=== PATIENT | female | born 1970 | race Caucasian/White ===

== ENCOUNTER 2017-03-01 17:38 | Emergency (ER) | payer MEDICAID ==
[~2017-03-01] VITALS: Ht 167.6 cm; Wt 65.0 kg
[~2017-03-01 17:38] MED LIST: ALBU1AER INH; CETI10 PO; FLUT1SPR9; LISI-363 PO; LORTA5 PO; MINO50CA PO; MINO50TA PO; MONT10TA2 PO; SYMB160A INH; TAB-TAB PO; VITA100020 IM
[2017-03-01 17:47] VITALS: BP 119/73; PULSE 82; RESP 16; TEMP 98.4; O2SAT 100
[2017-03-01] MEDS ORDERED: ALBUAER3 INH (18:02)
[2017-03-01] MEDS ORDERED: MINO50CA PO (18:02)
[2017-03-01] MEDS ORDERED: CETI10 PO (18:02)
[2017-03-01] MEDS ORDERED: LISI-515 PO (18:02)
[2017-03-01] MEDS ORDERED: FLUT1SPR5 EACH NARE (18:02)
[2017-03-01] MEDS ORDERED: SYMB80AE INH (18:02)
[2017-03-01] MEDS ORDERED: MONT10TA2 PO (18:02)
--- NOTE | 2017-03-01 19:14 | PD ---
HPI Chief Complaint: Foreign Body Time Seen by Provider: 19:14 Travel History International Travel<30 days: No Contact w/Intl Traveler<30days: No Traveled to known affect area: No History of Present Illness HPI 46-year-old female presents to the emergency department for evaluation of foreign body sensation in the left eye for about 3 hours. Patient states that she was standing in line at the [employer] market and felt something fly into her left eye. States that she tried to flush it with water but the foreign body sensation has persisted. States that initially she did have pain and increased tearing. States that while she was given sitting here with her eye closed for a while her symptoms have improved. States that she does still have a foreign body sensation in the eye. Denies any vision loss, blurred vision, photophobia , discharge, vision loss, headache, dizziness. Denies wearing any contact lenses. No other complaints. PFSH Past Medical History Hx Anticoagulant Therapy: No Asthma: Yes Anxiety: Yes Cardiovascular Problems: Yes (HTN) Cerebrovascular Accident: No Diabetes: No Diminished Hearing: No Hypertension: Yes Respiratory: Yes (ASTHMA) Myocardial Infarction: No Tetanus Vaccination: < 5 Years Influenza Vaccination: Yes ?: Not Dilation and Curettage (D&C): Yes Past Surgical History Abdominal Surgery: Yes (GASTRIC BYPASS, LAP. APPY,UMBILICAL HERNIA REPAIR) Oral Surgery: Yes Social History Alcohol Use: No Tobacco Use: No Substance Use: No Allergies-Medications (Allergen,Severity, Reaction): Coded Allergies: Novocain (Verified Allergy, Severe, FACIAL SWELLING, 03/01/17) Prednisone (Verified Allergy, Intermediate, dizzy, 03/01/17) Reported Meds & Prescriptions Reported Meds & Active Scripts Active Minocycline (Minocycline HCl) 50 Mg Cap 50 Mg PO DAILY Reported Flonase Nasal [place] (Fluticasone Nasal [place]) 50 Mcg/Act [place] 50 Mcg EACH NARE BID Proair Hfa 8.5 GM Inh (Albuterol Sulfate) 90 Mcg/Act Aer 2 Puff INH Q4-6H PRN 108 mcg/actuation Cetirizine (Cetirizine HCl) 10 Mg Tab 10 Mg PO HS Minocycline (Minocycline HCl) 50 Mg Cap 50 Mg PO HS Symbicort Inh (Budesonide/Formoterol Fumarate) 80-4.5 Mcg/Act Aero 2 Puff INH Q12HR Lisinopril 20 Mg Tab 20 Mg PO HS Singulair (Montelukast Sodium) 10 Mg Tab 10 Mg PO HS Review of Systems Except as stated in HPI: all other systems reviewed are Neg Physical Exam Narrative GENERAL: Well-nourished and well-developed pleasant patient in no acute distress who is nontoxic appearing. SKIN: Warm and dry. HEAD: Normocephalic and atraumatic. EYES: No injection, drainage, or hyphema noted. PERRLA. EOMI. no foreign body noted on lid eversion. Fluorescein stain reveals a pinpoint area of uptake to the bottom middle cornea, 6 o'clock position. No ulcerations or foreign bodies noted the cornea is clear. Visual acuity is equal bilaterally. ENT: No nasal drainage noted. Oropharynx is clear. NECK: Supple and the trachea is midline. CARDIOVASCULAR: Regular rate and rhythm. RESPIRATORY: Breath sounds are equal bilaterally with no accessory muscle use, wheezing, rhonchi, or crackles. NEUROLOGICAL: Awake, alert, and oriented. Normal speech and gait. Cranial nerves are grossly intact. Data Data Last Documented VS Vital Signs Date Time Temp Pulse Resp B/P Pulse Ox O2 Delivery O2 Flow Rate FiO2 03/01/17 17:47 98.4 82 16 119/73 100 MDM Medical Decision Making Medical Screen Exam Complete: Yes Emergency Medical Condition: Yes Differential Diagnosis Corneal abrasion versus ulcer versus irritation Narrative Course 46-year-old female presents to the emergency department for evaluation of foreign body sensation in the left eye. She has a small area of uptake in the lower cornea. Consistent with a small abrasion. She'll be placed on erythromycin ophthalmic ointment and instructed follow-up with an oil recovery unit operator. Patient verbalizes understanding and agreement with treatment plan. I discussed the case with my attending physician Dr. melo who is aware of the patients history, physical examination findings, and treatment plan. Diagnosis Primary Impression: Corneal abrasion, left Qualified Code: S05.02XA - Corneal abrasion, left, initial encounter Referrals: [facility] Patient Instructions: Corneal Abrasion (ED), General Instructions Additional Instructions: Apply ointment as prescribed. Follow-up with an oil recovery unit operator. Return to the ED for any acute worsening of symptoms. Med/Other Pt SpecificInfo: Prescription(s) given Scripts Erythromycin Opth Oint 5 Mg/Gm Oint1 Applic LEFT EYE QID 7 Days Ref 0 Prov:Salter,Kamilla H. MD 03/01/17 Disposition: 01 DISCHARGE HOME Condition: Stable Domi Hinds Mar 01, 2017 19:14
[2017-03-01] MEDS ORDERED: ERYTOIN10 LEFT EYE (19:20)
[2017-03-13] MEDS ORDERED: MONT10TA2 PO (08:39)
[2017-03-13] MEDS ORDERED: LISI-515 PO (08:39)
[2017-03-13] MEDS ORDERED: ALBUAER3 INH (08:39)
== END 2017-03-01 19:30 | disposition home or self-care (01) ==
LOC: PHEFT 17:38
DX: S05.02XA Injury of conjunctiva and corneal abrasion without foreign body, left eye, initial encounter (principal); I10 Essential (primary) hypertension; Z87.09 Personal history of other diseases of the respiratory system; Z86.59 Personal history of other mental and behavioral disorders; Z86.79 Personal history of other diseases of the circulatory system; X58.XXXA Exposure to other specified factors, initial encounter
CPT/HCPCS: 99283